=== PATIENT | female | born 1995 | race African-American/Black ===

== ENCOUNTER 2018-07-31 15:02 | Emergency (ER) | payer SELFPAY ==
[~2018-07-31] VITALS: Ht 160 cm; Wt 51.7 kg
--- OUTSIDE RECORDS SUMMARY | 2018-07-31 15:04 | XMS REPORT | Clinical Summary ---
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 tablet Active ferrous sulfate (IRON Take by 0 ORAL) mouth. Active Problems Comments Yes No additional problems on file Encounters Care Team Description Date Type Specialty Meggan Vasques MD DILATION AND CURETTAGE 03/31/2018 Surgery Obstetrics and Gynecology Azeem Batres, CANDELARIA 03/31/2018 Anesthesia Obstetrics and Gynecology Event Meggan Vasques MD Missed 03/31/2018 Hospital Obstetrics and Gynecology Encounter Meggan Vasques MD Preop testing (Primary Dx) 03/29/2018 Pre-Admit Pre-Admission Testing Testing Appointment Meggan Vasques MD Missed ab 03/29/2018 Ancillary Obstetrics and Gynecology Procedure Meggan Vasques MD 03/29/2018 Routine Obstetrics and Gynecology Felicia Finch MA 03/29/2018 Orders Only Obstetrics and Gynecology Meggan Vasques MD Positive test 03/23/2018 Ancillary Obstetrics and Gynecology Procedure Meggan Vasques MD Positive test (Primary Dx) 03/23/2018 Office Visit Obstetrics and Gynecology Felicia Finch MA 03/01/2018 Telephone Obstetrics and Gynecology Meggan Vasques MD 02/28/2018 Telephone Obstetrics and Gynecology after 07/30/2017 Family History Medical History Relation Name Comments No Known Problems Father No Known Problems Mother Relation Name Status Comments Father Alive Mother Alive Social History Date Tobacco Use Types Packs/Day Years Used Never Smoker Smokeless Tobacco: Never Used Alcohol Use Drinks/Week oz/Week Comments Yes social- none since Comments Yes Sex Assigned at Date Recorded Not on file Industry Job Start Date Occupation Not on file Not on file Not on file Travel End Travel History Travel Start No recent travel history available. Last Filed Vital Signs Time Taken Vital Sign Reading 03/31/2018 9:31 AM [employer] Blood Pressure 104/67 03/31/2018 9:31 AM [employer] Pulse 97 03/31/2018 9:31 AM [employer] Temperature 37.5 C (99.5 F) 03/31/2018 9:31 AM [employer] Respiratory Rate 20 03/31/2018 9:31 AM [employer] Oxygen Saturation 98% - Inhaled Oxygen - Concentration 03/31/2018 6:55 AM [employer] Weight 53.9 kg (118 lb 14.4 oz) 03/31/2018 6:55 AM [employer] Height 160 cm (5' 3") 03/31/2018 6:55 AM [employer] Body Mass Index 21.06 Plan of Treatment Care Team Description Date Type Specialty Meggan Vasques MD [address] [place] [id number] [phone] 08/16/2018 Office Visit Obstetrics and Gynecology Health Maintenance Due Date Last Done Comments CHLAMYDIA SCREENING 2010 CERVICAL CANCER SCREENING 2015 INFLUENZA VACCINE 11/16/2018 Procedures Comments Procedure Name Priority Date/Time Associated Diagnosis SURGICAL PATHOLOGY Routine 03/31/2018 REQUEST 8:59 AM [employer] NM AN ELECTIVE Routine 03/31/2018 SUPRAGLOTTIC AIRWAY 7:53 AM [employer] Procedure Note - Deidre Grijalva MD - 03/31/2018 7:53 AM [employer] ANESTHESIA INTUBATION Date/Time: 03/31/2018 7:28 AM Performed by: Deidre Grijalva MD Authorized by: Deidre Grijalva MD Location: OR Urgency: Elective Difficult Airway: No Anesthesio logist: Deidre Grijalva MD Performed by: anesthesio logist Preoxygena bill with 100% O2: Yes C-spine Precaution s Maintained Throughout : No Mask Ventilatio n: Not attempted Final Airway Type: Supraglott ic airway Final LMA: I-Gel LMA Size: 4 Number of Attempts at Approach: 1 DILATION AND CURETTAGE, 03/31/2018 Missed UTERUS, FOR MISSED FIRST 7:15 AM [employer] TRIMESTER Special Needs EST 1HR TYPE AND SCREEN Routine 03/29/2018 Preop testing 10:23 AM [employer] CBC HEMOGRAM Routine 03/29/2018 Preop testing 10:23 AM [employer] US SINGLE LESS Routine 03/29/2018 Missed ab THAN 14 WEEKS 8:53 AM [employer] US TRANSVAGINAL Routine 03/23/2018 Positive test 10:49 AM [employer] after 07/30/2017 Results * Surgical pathology request (03/31/2018 8:59 AM [employer] IN[employer]) [facility] DEPARTMENT OF PATHOLOGY AND GENOMIC MEDICINE Surgical pathology report See link below for PDF Lab [facility] DEPARTMENT OF Report PATHOLOGY AND GENOMIC MEDICINE Result status This is Final Report for [facility] DEPARTMENT OF [id number] PATHOLOGY AND GENOMIC MEDICINE Performing Organization Address City/[facility] Phone Number [facility] DEPARTMENT OF [address] [place] [address] PATHOLOGY AND GENOMIC MEDICINE * CBC hemogram (03/29/2018 10:23 AM [employer]) WBC 4.64 4.50 - 11.00 k/uL [facility] RBC 4.39 4.20 - 5.50 m/uL [facility] HGB 11.8 (L) 12.0 - 16.0 g/dL [facility] HCT 37.1 37.0 - 47.0 % [facility] MCV 84.5 82.0 - 100.0 fL [facility] MCH 26.9 (L) 27.0 - 34.0 pg [facility] MCHC 31.8 31.0 - 37.0 g/dL [facility] RDW - SD 40.2 37.0 - 55.0 fL [facility] MPV 11.2 8.8 - 13.2 fL [facility] Platelet count 193 150 - 400 k/uL [facility] Nucleated RBC 0.00 /100 WBC [facility] Specimen Blood Performing Organization Address City/[facility]/Zipcode Phone Number [facility] DEPARTMENT OF [address] [place] [address] PATHOLOGY AND GENOMIC MEDICINE [address] [address] HOSPITAL * Type and screen (03/29/2018 10:23 AM [employer]) ABO grouping O [facility] Rh type POS [facility] Antibody screen (gel) NEG [facility] Specimen Blood Performing Organization Address City/State/[facility] Phone Number [facility] DEPARTMENT OF [address] [place] [phone] PATHOLOGY AND GENOMIC MEDICINE [address] * US Single Less Than 14 Weeks (03/29/2018 8:53 AM [employer] IN[employer]ER) Narrative Performed At [facility] LMP:01/24/2018 LMP -- GA:9w1d DEMARCUS:10/31/2018 AUA--GA:5w6d DEMARCUS:11/23/2018 CRL:2.73 mmFHR:Not seen Yolk sac seen:Yes Gestational Sac:good Corpus Luteum: HE Performing Organization Address City/[facility] Phone Number [address] [address] * [place] Transvaginal (03/23/2018 10:49 AM [employer] IN[employer]ER) Narrative Performed At [facility] LMP:01/24/18 LMP -- GA:8w2d DEMARCUS:10/31/18 AUA--GA:6w0d DEMARCUS:11/16/18 CRL:3.8 mmFHR:No FHT's Yolk sac seen:Yes Gestational Sac:good Corpus Luteum:Right kt Performing Organization Address [facility] Phone Number [address] [address] after 07/30/2017 Insurance Payer Benefit Subscriber ID Type Phone Address Plan / Group [facility] UMR xxxxxxxxxxxx PPO [id number] Advance Directives Patient has advance care planning documents on file. For more information, leandro tinoco contact: [address] [place] [address]
[2018-07-31 16:58] LABS: BILIRUBIN,URINE NEGATIVE (NEGATIVE); CLARITY,URINE SL CLOUDY (CLEAR); COLOR,URINE YELLOW (YELLOW); KETONES,URINE NEGATIVE (NEGATIVE); LEUKOCYTE ESTERASE ,URINE NEGATIVE (NEGATIVE); NITRITE,URINE NEGATIVE (NEGATIVE); PROTEIN,URINE DIPSTICK NEGATIVE (NEGATIVE); URINE UROBILINOGEN 0.2 mg/dL (0.2 - 1)
[2018-07-31 16:59] LABS: PREGNANCY TEST, URINE POSITIVE (NEGATIVE)
[2018-07-31 17:09] LABS: AMORPHOUS SEDIMENT,URINE MANY (FEW); BACTERIA,URINE MODERATE /HPF; EPITHELIAL CELLS,URINE FEW /LPF
[2018-07-31 17:55] LABS: BASOPHILS % 0.1 % (0.0-1.0); EOSINOPHILS # (AUTO) 0.1 (0.0-0.4); EOSINOPHILS % 1.2 % (0.0-6.0); HEMATOCRIT 36.6 % (34.2-44.1); HEMOGLOBIN 11.6 g/dL (12.0-16.0); LYMPHOCYTES # (AUTO) 2.4 (1.0-3.2); LYMPHOCYTES % 34.6 % (18.0-39.1); MEAN CORPUSCULAR HEMOGLOBIN 26.2 pg (28-32); MEAN CORPUSCULAR HGB CONC 31.7 g/dL (31-35); MEAN CORPUSCULAR VOLUME 82.6 fL (81-99); MONOCYTES # (AUTO) 0.6 (0.2-0.8); MONOCYTES % 9.1 % (4.4-11.3); NEUTROPHILS # (AUTO) 3.7 (2.1-6.9); NEUTROPHILS % 54.7 % (38.7-80.0); PLATELET COUNT 221 x10e3/uL (140-360); RED BLOOD COUNT 4.43 x10e6/uL (3.6-5.1); RED CELL DISTRIBUTION WIDTH 13.2 % (11.7-14.4)
== END 2018-07-31 18:50 | disposition home or self-care (01) ==
LOC: ER 15:02
DX: O20.9 Hemorrhage in early pregnancy, unspecified (principal); N93.0 Postcoital and contact bleeding
CPT/HCPCS: 36415; 81001; 81025; 84702; 85025; 99283